=== PATIENT | female | born 1940 | race Caucasian/White ===

== ENCOUNTER → 2018-03-01 09:44 | Outpatient (CLI) | payer MEDICARE, SELFPAY ==
[2018-03-01 09:59] LABS: Add Manual Diff / Slide Review NO; Basophils Percent Auto 1.1 % (0-2); Hematocrit 35.6 % (36-46); Hemoglobin 11.8 g/dL (12.0-16.0); Lymphocytes Percent Auto 24.3 % (25-40); Mean Corpuscular HGB Conc 33.1 % (30-36); Mean Corpuscular Hemoglobin 25.5 PG (26-34); Mean Corpuscular Volume 76.9 fL (80-100); Monocytes Percent Auto 8.2 % (3-14); Neutrophils Absolute Auto 4300 /uL (3000-5900); Neutrophils Percent Auto 64.4 % (50-75); Platelet Count 198 X10^3/uL (150-400); Red Blood Cell Count 4.63 X10^6/uL (4.0-5.2); White Blood Cell Count 6.7 X10^3/uL (4.5-11.0)
[2018-03-01 10:35] LABS: Alanine Aminotransferase 24 IU/L (9-52); Albumin 4.2 g/dL (3.5-5.0); Albumin Globulin Ratio 1.4 (1.0-2.8); Alkaline Phosphatase 84 U/L (38-126); Aspartate Aminotransferase 23 IU/L (14-36); BUN Creatinine Ratio 22.5 (6-22); Bilirubin Total 0.5 mg/dL (0.2-1.3); Blood Urea Nitrogen 18 mg/dL (7-17); Calcium 9.2 mg/dL (8.4-10.2); Carbon Dioxide 26 mmol/L (22-32); Chloride 108 mmol/L (98-107); Estimated Glomerular Filt Rate > 60.0 mL/min (>60); Globulin 2.9 g/dL (1.7-4.1); Glucose 100 mg/dL (80-110); HDL Cholesterol 41 mg/dL (40-60); HEMOLYSIS < 15 (0-50); Potassium 4.5 mmol/L (3.4-5.1); Sodium 142 mmol/L (137-145); Total Protein 7.1 g/dL (6.3-8.2); Triglycerides 291 mg/dL (35-150)
[2018-03-01 10:43] LABS: Cholesterol 333 mg/dL (140-199); LDL Cholesterol Calculated 234 mg/dL (<100)
[2018-03-01 11:03] LABS: TSH w/ Reflex to FT4 1.51 uIU/mL (0.47-4.68)
== END ==
PROVIDERS: PCP Family Medicine; Visit Provider Family Medicine
DX: L65.9 Nonscarring hair loss, unspecified (principal); E78.5 Hyperlipidemia, unspecified
CPT/HCPCS: 80053; 80061; 84443; 85025

== ENCOUNTER 2018-12-10 11:18 | Day surgery (SDC) | payer OTHER, SELFPAY ==
[2018-12-10 11:50] VITALS: BP 139/77; PULSE 79; RESP 18; TEMP 36.6; O2SAT 99; BMI 30.2
[2018-12-10] MEDS: PROPARACAINE 0.5% OPHTH SOL 2 DROPS EYE-OP (12:15)
[2018-12-10] MEDS: CATARACT EYE COMPOUND (10 DROPS/SYRINGE) 3 DROPS EYE-OP (12:20)
--- NOTE | 2018-12-10 12:54 | PM.PREOP ---
Pre-operative Note Interval Note History & Physical reviewed/Exam performed by Physician: No Changes to H&P: No
--- NOTE | 2018-12-10 12:54 | PM.OP.1 ---
Operative Date/Time/Diagnoses Pre-op diagnosis: Nuclear Cataract Left eye Post-op diagnosis: same Procedure & Clinicians Surgeon: Guanako Bryant Anesthesia Type: MAC +/- and Sedation Operative Notes Procedure in detail: Patient brought to the operating suite. Tetracaine drops placed in the left eye. Patient was prepped and draped in sterile manner. Wire lid speculum was placed in the eye. Betadine drops were placed on the eye. This was irrigated. Lidocaine jelly was placed on the eye. A paracentesis port was created with a side-port blade. 0.1 mL 1% preservative free lidocaine was injected into the anterior chamber. The anterior chamber was deepened with viscoelastic. 2.6 mm keratome was used to create a temporal clear corneal incision. Cystotome and Utrata forceps were used to create continuous tear capsulorrhexis. Balanced salt solution was used to hydro dissect the nucleus. The phacoemulsification handpiece was inserted and the nucleus was removed using the stop and chop technique. The irrigation aspiration handpiece was inserted and the remaining cortex was removed. Anterior chamber was deepened with viscoelastic. An Herr ZCB00 intraocular lens with a power of 18.0 was injected into the capsular bag. Irrigation aspiration handpiece was inserted and the remaining viscoelastic was removed. Incision was hydrated with balanced salt solution and found to be leak free with pressure with Weck-Eliana sponges. 0.1 mL Vigamox injected anterior chamber. 0.3 mL Kenalog 10 mg was injected subconjunctivally. Lid speculum was removed. The patient left the operating room in excellent condition. Complications: none Condition: stable Disposition: same day surgery
[2018-12-10] MEDS: PHENYLEPHRINE/LIDOCAINE VIAL (OR) 0.2 ML EYE-OP (13:12)
[2018-12-10] MEDS: MOXIFLOXACIN OPHTH DROPS 3 ML BOTTLE 2 DROPS INJ (13:12)
[2018-12-10] MEDS: TRIAMCINOLONE 50 MG/5 ML VIAL INJ (13:12)
[2018-12-10] MEDS: LIDOCAINE JELLY 2% 5 ML 1 APPLIC TOP (13:14)
[2018-12-10] MEDS: BALANCED SALT IRRIG SOLN NO.2 500 ML, EPINEPHrine 1 MG IRR (13:15)
[2018-12-10] MEDS: TETRACAINE 0.5% OPHTH DROPS 4 ML 2 DROPS EYE-OP (13:15)
[2018-12-10] MEDS: CHONDROIDTIN/SOD HYALURONATE 1.05 ML SYRINGE INTRAOCULA (13:16)
[2018-12-10 13:25] VITALS: BP 141/66; PULSE 73; RESP 20; TEMP 36.2; O2SAT 100
== END 2018-12-10 13:42 | disposition home or self-care (01) ==
PROVIDERS: Family Provider Family Medicine; PCP Nurse Practitioner Family; Visit Provider Ophthalmology
DX: H25.12 Age-related nuclear cataract, left eye (principal)
CPT/HCPCS: J0171; J2250; J3301

== ENCOUNTER 2018-12-24 10:29 | Day surgery (SDC) | payer OTHER, SELFPAY ==
[2018-12-24] MEDS: PROPARACAINE 0.5% OPHTH SOL 2 DROPS EYE-OP (10:59)
[2018-12-24 11:01] VITALS: BMI 26.2
[2018-12-24] MEDS: CATARACT EYE COMPOUND (10 DROPS/SYRINGE) 3 DROPS EYE-OP (11:08)
[2018-12-24 11:09] VITALS: BP 153/83; PULSE 71; RESP 16; TEMP 36.2; O2SAT 100
--- NOTE | 2018-12-24 11:57 | PM.PREOP ---
Pre-operative Note Interval Note History & Physical reviewed/Exam performed by Physician: No Changes to H&P: No
--- NOTE | 2018-12-24 11:57 | PM.OP.1 ---
Operative Date/Time/Diagnoses Pre-op diagnosis: Nuclear cataract right eye Procedure & Clinicians Procedure: Cataract Surgery Same procedure as scheduled: Yes Surgeon: Guanako Bryant Anesthesia Type: MAC +/- and Sedation Operative Notes Procedure in detail: Patient brought to the operating suite. Tetracaine drops placed in the right eye. Patient was prepped and draped in sterile manner. Wire lid speculum was placed in the eye. Betadine drops were placed on the eye. This was irrigated. Lidocaine jelly was placed on the eye. A paracentesis port was created with a side-port blade. 0.1 mL 1% preservative free lidocaine was injected into the anterior chamber. The anterior chamber was deepened with viscoelastic. 2.6 mm keratome was used to create a temporal clear corneal incision. Cystotome and Utrata forceps were used to create continuous tear capsulorrhexis. Balanced salt solution was used to hydro dissect the nucleus. The phacoemulsification handpiece was inserted and the nucleus was removed using the stop and chop technique. The irrigation aspiration handpiece was inserted and the remaining cortex was removed. Anterior chamber was deepened with viscoelastic. An Herr ZCB00 intraocular lens with a power of 18.5 was injected into the capsular bag. Irrigation aspiration handpiece was inserted and the remaining viscoelastic was removed. Incision was hydrated with balanced salt solution and found to be leak free with pressure with Weck-Eliana sponges. 0.1 mL Vigamox injected anterior chamber. 0.3 mL Kenalog 10 mg was injected subconjunctivally. Lid speculum was removed. The patient left the operating room in excellent condition. Complications: none Condition: stable Disposition: same day surgery
--- NOTE | 2018-12-24 12:07 | SUR.OPER ---
Supine on eye stretcher, head on extension cradle secured with tape. Arms tucked at sides with blanket. Pillow under knees.
[2018-12-24] MEDS: MOXIFLOXACIN OPHTH DROPS 3 ML BOTTLE 2 DROPS INJ (12:10)
[2018-12-24] MEDS: LIDOCAINE JELLY 2% 5 ML 1 APPLIC TOP (12:10)
[2018-12-24] MEDS: PHENYLEPHRINE/LIDOCAINE VIAL (OR) 0.2 ML EYE-OP (12:10)
[2018-12-24] MEDS: CHONDROIDTIN/SOD HYALURONATE 1.05 ML SYRINGE INTRAOCULA (12:10)
[2018-12-24] MEDS: TETRACAINE 0.5% OPHTH DROPS 4 ML 2 DROPS EYE-OP (12:11)
[2018-12-24] MEDS: BALANCED SALT IRRIG SOLN NO.2 500 ML, EPINEPHrine 1 MG IRR (12:12)
[2018-12-24 12:29] VITALS: BP 162/68; PULSE 63; RESP 14; TEMP 36.2; O2SAT 100
--- NOTE | 2018-12-24 12:38 | SUR.PHASEII ---
Confirmed that patient has a Dr. order that she may take a taxi home w/ Autumn Kiran RN
== END 2018-12-24 12:42 | disposition home or self-care (01) ==
LOC: OR 10:31
PROVIDERS: PCP Nurse Practitioner Family; Visit Provider Ophthalmology
DX: H25.11 Age-related nuclear cataract, right eye (principal)
CPT/HCPCS: J0171

== ENCOUNTER 2019-07-28 04:49 | Inpatient (IN) | payer OTHER, SELFPAY ==
[2019-07-28] VITALS (10 sets, daily range): BP systolic 119–181; BP diastolic 53–84; PULSE 67–96; RESP 15–18; TEMP 36.3–36.9; O2SAT 94–99; BMI 24.1
--- NOTE | 2019-07-28 04:56 | ED_ITS ---
HPI - GI Bleed General Chief complaint: Abdominal Pain Stated complaint: throwing coffee grounds/blood clot Time Seen by Provider: 07/28/19 04:54 Source: patient and old records reviewed Mode of arrival: Ambulatory Limitations: no limitations History of Present Illness HPI Narrative: This is a 78-year-old female comes to the emergency department with complaint of abdominal pain kind of in the epigastric but also mid abdominal area. Patient states that she has is on off for a long period of time. She states she has known ulcers. She also describes what sounds like strictures in the esophagus and potentially some issues with bowel obstructions in the past. Patient states that she threw up multiple times since yesterday at 6:00 a.m. and that she did see some coffee-ground. She states she smokes little dizzy but no presyncope or lightheadedness. She denies any chest pain or shortness of breath. She states she has been having bowel movements she denies melena or bright red blood. She denies dysuria, urgency or frequency. She has not appreciated any swelling in her lower extremities. She states she takes medications for bipolar. She takes Pepcid daily for her stomach. She denies any aspirin or other blood thinners. Related Data Previous Rx's Medication Instructions Recorded sertraline 100 mg tablet 150 mg PO QDAY #135 tab 12/24/17 atorvastatin 40 mg tablet 40 mg PO BEDTIME #30 tab 07/01/18 hydroxyzine HCl 10 mg tablet 10 mg PO BEDTIME PRN #30 tab 07/01/18 Allergies Allergy/AdvReac Type Severity Reaction Status Date / Time Penicillins [PENICILLINS] Allergy Mild Rash Verified 12/24/18 10:57 Review of Systems Review of Systems ROS Unobtainable: All systems reviewed & are unremarkable except as noted in HPI and below Patient History Family History Brother No problems noted. Grandfather No problems noted. Grandmother No problems noted. Social History household members: family Smoking Status: Never smoker alcohol intake: never substance use type: does not use Smoking Status: Never smoker Exam Narrative Exam Narrative: GENERAL: Alert and oriented x three, well-nourished, well- appearing elderly female. HEENT: Head normocephalic, atraumatic, EOMI, pupils reactive, no conjunctival pallor, face symmetric, moist mucous membranes NECK: Supple, full range of motion CARDIOVASCULAR: Regular rate and rhythm without murmurs, rubs or gallops. RESPIRATORY: Breath sounds equal bilaterally, no wheezes rales or rhonchi. ABDOMEN: Soft, nontender. Normoactive bowel sounds all 4 quadrants. No guarding or rebound, rigidity, no mass : No CVA tenderness EXTREMITIES: Normal range of motion, no clubbing or edema. Neurovascularly intact NEUROLOGICAL: Cranial nerves II through XII grossly intact. Moving all extremities SKIN: Warm, dry, no petechiae, no rashes or lesions. Initial Vital Signs Initial Vital Signs: Vital Signs Temperature 98 F 07/28/19 05:00 Pulse Rate 96 H 07/28/19 05:00 Respiratory Rate 18 07/28/19 05:00 Blood Pressure 181/84 H 07/28/19 05:00 Pulse Oximetry 97 07/28/19 05:00 Course Orders Ordered: ED Orders 07/28/19 05:11 Complete Blood Count AUTO DIFF Stat Comprehensive Metabolic Panel Stat Lipase Stat Partial Thromboplastin Time Stat Prothrombin Time INR Stat 07/28/19 05:19 CT abdomen pelvis w con Stat 07/28/19 05:30 Type and Screen Stat Discontinued Medications Al Hydrox/Mg Hydrox/Simethicone 20 ml/ Lidocaine HCl 15 ml 0 ml PO NOW ONE Stop: 07/28/19 06:51 Last Admin: 07/28/19 07:30 Dose: 15 ml Documented by: CLOTILDE Ondansetron HCl (Zofran) 4 mg IV NOW ONE Stop: 07/28/19 05:19 Last Admin: 07/28/19 05:29 Dose: 4 mg Documented by: PETE Pantoprazole Sodium (Protonix) 80 mg IV NOW ONE Stop: 07/28/19 05:19 Last Admin: 07/28/19 05:28 Dose: 80 mg Documented by: PETE Vital Signs Vital signs: Vital Signs - 8 hr 07/28/19 05:00 07/28/19 06:12 Temperature 98 F Pulse Rate 96 H 67 Respiratory Rate 18 18 Blood Pressure 181/84 H Blood Pressure [Right Arm] 180/65 H Pulse Oximetry 97 94 MDM - GI Bleed Lab Data Attestation: I reviewed the patient's lab results. Result diagrams: 07/28/19 05:11 07/28/19 05:11 Labs: Lab Results 07/28/19 07/28/19 07/28/19 Range/Units 05:11 05:11 05:11 WBC 8.3 (4.5-11.0) X10^3/uL RBC 3.88 L (4.0-5.2) X10^6/uL Hgb 7.9 L (12.0-16.0) g/dL Hct 24.9 L (36-46) % MCV 64.2 L (80-100) fL MCH 20.3 L (26-34) PG MCHC 31.7 (30-36) % RDW 17.8 H (11.6-14.8) % Plt Count 230 (150-400) X10^3/uL Neut % (Auto) 72.3 (50-75) % Lymph % (Auto) 15.9 L (25-40) % [place] % (Auto) 9.8 (3-14) % Eos % (Auto) 0.9 L (2-4) % Baso % (Auto) 1.1 (0-2) % Neut # (Auto) 6000 (0293-1972) /uL Lymph # (Auto) 1300 (3124-7087) /uL [place] # (Auto) 800 (0-900) /uL Eos # (Auto) 100 (0-450) /uL Baso # (Auto) 100 (0-100) /uL RBC Morphology See below Hypochromasia 1+ H Anisocytosis 2+ H Microcytosis 2+ H Tear Drop Cells 1+ H Schistocytes 1+ H PT 12.0 (10.1-12.7) SECONDS INR 1.0 (0.9-1.3) APTT 30 (26.4-36.2) SECONDS Sodium 140 (137-145) mmol/L Potassium 3.6 (3.4-5.1) mmol/L Chloride 101 (98-107) mmol/L Carbon Dioxide 29 (22-32) mmol/L BUN 28 H (7-17) mg/dL Creatinine 0.90 (0.52-1.04) mg/dL Estimated GFR > 60.0 (>60) mL/min BUN/Creatinine Ratio 31.1 H (6-22) Glucose 116 H (80-110) mg/dL Calcium 9.8 (8.4-10.2) mg/dL Total Bilirubin 0.4 (0.2-1.3) mg/dL AST 20 (14-36) IU/L ALT 14 (<35) IU/L Alkaline Phosphatase 84 (38-126) U/L Total Protein 6.9 (6.3-8.2) g/dL Albumin 4.2 (3.5-5.0) g/dL Globulin 2.7 (1.7-4.1) g/dL Albumin/Globulin Ratio 1.6 (1.0-2.8) Lipase 79 (23-300) U/L Blood Type Antibody Screen 07/28/19 Range/Units 05:30 WBC (4.5-11.0) X10^3/uL RBC (4.0-5.2) X10^6/uL Hgb (12.0-16.0) g/dL Hct (36-46) % MCV (80-100) fL MCH (26-34) PG MCHC (30-36) % RDW (11.6-14.8) % Plt Count (150-400) X10^3/uL Neut % (Auto) (50-75) % Lymph % (Auto) (25-40) % [place] % (Auto) (3-14) % Eos % (Auto) (2-4) % Baso % (Auto) (0-2) % Neut # (Auto) (6500-2136) /uL Lymph # (Auto) (2020-7479) /uL [place] # (Auto) (0-900) /uL Eos # (Auto) (0-450) /uL Baso # (Auto) (0-100) /uL RBC Morphology Hypochromasia Anisocytosis Microcytosis Tear Drop Cells Schistocytes PT (10.1-12.7) SECONDS INR (0.9-1.3) APTT (26.4-36.2) SECONDS Sodium (137-145) mmol/L Potassium (3.4-5.1) mmol/L Chloride (98-107) mmol/L Carbon Dioxide (22-32) mmol/L BUN (7-17) mg/dL Creatinine (0.52-1.04) mg/dL Estimated GFR (>60) mL/min BUN/Creatinine Ratio (6-22) Glucose (80-110) mg/dL Calcium (8.4-10.2) mg/dL Total Bilirubin (0.2-1.3) mg/dL AST (14-36) IU/L ALT (<35) IU/L Alkaline Phosphatase (38-126) U/L Total Protein (6.3-8.2) g/dL Albumin (3.5-5.0) g/dL Globulin (1.7-4.1) g/dL Albumin/Globulin Ratio (1.0-2.8) Lipase (23-300) U/L Blood Type O Positive Antibody Screen Negative Imaging Data CT scan - abdomen: Radiologist's impression: Large hiatal hernia with the stomach of the fundus in the left lower chest. Mild stranding adjacent to the subdiaphragmatic esophagus. Moderate fluid in the stomach. Dependent changes in the lung bases, left greater than right. 2 mm right perihilar a subpleural nodule. Impression moderate distention of the stomach fundus of the stomach the left lower chest. Inflammation surrounding the sub diaphragmatic distal esophagus. Gastric volvulus is a consideration. MDM Narrative Medical decision making narrative: Patient hemoglobin is 7.9 prior is 11.8 from 03/01/18. Patient has not had tachycardia or hypotension in the department. She has history of peptic ulcer disease and has had prior EGD's. Patient had complaint of coffee ground emesis on earlier this evening, no additional in d epartment. CT abd/pelvis shows moderate distention of the stomach with fundus of the stomach in the left lower chest. Inflammation surrounding subdiaphragmatic distal esophagus. Gastric volvulus is a consideration. Spoke with Dr. Isidro, he asked that patient be admitted to Medicine. based on the fact that patient is not severely painful, she has been having bowel movements and passing gas regularly both his and my suspicion is that this is not a volvulus. Patient does have a history of peptic ulcer disease and with her or change in hemoglobin from last year would be prudent to observe. Patient was given Protonix 80 mg. Patient signed out to Dr. Gonzales while awaiting callback from medicine. Discharge Plan Departure Clinical Impression: GI bleed Prescriptions: No Action sertraline [Zoloft] 100 mg tablet 150 mg PO QDAY Qty: 135 RF: 3 atorvastatin 40 mg tablet 40 mg PO BEDTIME Qty: 30 RF: 5 hydroxyzine HCl 10 mg tablet 10 mg PO BEDTIME PRN (Reason: insomnia) Qty: 30 RF: 0 Referrals: Freida Phillips ARNP [Primary Care Provider] - ED Sign-out Sign Out Provider Sign Out Attestation: Patient Sign Out occurred on 07/28/19 at 0735 . Patient's care was discussed, and care was transferred from Ciara Adams DO to Dr. Gonzales.
--- NOTE | 2019-07-28 05:19 | DI.CT.S_ITS ---
PROCEDURE: CT ABDOMEN PELVIS W CON INDICATIONS: vomiting, hx peptic ulcer, epigastric/mid abd pain TECHNIQUE: After the administration of intravenous contrast, 5 mm thick sections acquired from the diaphragm to the symphysis. 5 mm coronal and sagittal reformats were acquired. For radiation dose reduction, the following was used: automated exposure control, adjustment of mA and/or kV according to patient size. COMPARISON: [facility], CT, ABDOMEN WITH CONTRAST, 08/23/2012, 8:43. FINDINGS: Image quality: Excellent. ABDOMEN: Lung bases: Scattered scarring/atelectasis. No acute consolidation. 2-3 mm nodule present within the subpleural right lung base on image 4 series 3, technically non-specific Solid organs: Liver is normal in size and enhancement. Gallbladder surgically absent. Biliary system is non dilated. Pancreas enhances normally. Spleen is normal in size and enhancement. No adrenal nodules. No hydronephrosis. Simple appearing exophytic left renal cyst. Additional cortical cysts in the left kidney with simple appearance. No perinephric stranding. Peritoneum and bowel: There is large hiatal hernia as before, with air fluid level in the gastric lumen. Inflammatory stranding in the distal esophagus. As discussed in the preliminary report, technically cannot exclude gastric volvulus, however nonspecific appearance and this requires clinical correlation. No free air or free fluid. No evidence of bowel obstruction or specific transition point. Diffuse moderate stool. Colonic diverticulosis. Rectum grossly unremarkable. Nodes and vessels: No retroperitoneal or mesenteric adenopathy by size criteria. Aorta and inferior vena cava are normal in size. Miscellaneous: No ventral hernias. PELVIS: Genitourinary: Bladder wall thickness is normal. Miscellaneous: No inguinal hernias or adenopathy. Bones: No suspicious bony lesions. No vertebral body compression fractures. Diffuse osteopenia. Facet arthropathy and multilevel spondylosis. Slight retrolisthesis of L1 on L2 and L2 on L3. Large Schmorl's node involving the L3 superior endplate, as before IMPRESSION: Large hiatal hernia as before, with distended appearance of the stomach, and mild inflammatory changes surrounding the distal esophagus. Gastric volvulus is a consideration however requires close clinical correlation. Incidental diverticulosis. 2-3 mm right subpleural nodule, technically nonspecific. This could be followed up with a one year interval chest CT as clinically warranted Dictated by: Cole Gan M.D. on 07/28/2019 at 8:25 Approved by: Cole Gan M.D. on 07/28/2019 at 8:37
[2019-07-28] MEDS: PANTOPRAZOLE 40 MG VIAL 80 MG IV (05:28)
[2019-07-28 05:29] LABS: Basophils Absolute Auto 100 /uL (0-100); Basophils Percent Auto 1.1 % (0-2); Eosinophils Absolute Auto 100 /uL (0-450); Eosinophils Percent Auto 0.9 % (2-4); Hematocrit 24.9 % (36-46); Hemoglobin 7.9 g/dL (12.0-16.0); Lymphocytes Absolute Auto 1300 /uL (1100-4500); Lymphocytes Percent Auto 15.9 % (25-40); Mean Corpuscular HGB Conc 31.7 % (30-36); Mean Corpuscular Hemoglobin 20.3 PG (26-34); Mean Corpuscular Volume 64.2 fL (80-100); Monocytes Absolute Auto 800 /uL (0-900); Monocytes Percent Auto 9.8 % (3-14); Neutrophils Absolute Auto 6000 /uL (1500-7000); Neutrophils Percent Auto 72.3 % (50-75); Platelet Count 230 X10^3/uL (150-400); Red Blood Cell Count 3.88 X10^6/uL (4.0-5.2); Red Cell Distribution Width 17.8 % (11.6-14.8); White Blood Cell Count 8.3 X10^3/uL (4.5-11.0)
[2019-07-28] MEDS: ONDANSETRON 4 MG/2 ML INJ IV (05:29)
[2019-07-28 05:31] LABS: Add Manual Diff / Slide Review SLIDE REVIEW
[2019-07-28 05:44] LABS: Alanine Aminotransferase 14 IU/L (<35); Albumin 4.2 g/dL (3.5-5.0); Albumin Globulin Ratio 1.6 (1.0-2.8); Alkaline Phosphatase 84 U/L (38-126); Aspartate Aminotransferase 20 IU/L (14-36); BUN Creatinine Ratio 31.1 (6-22); Bilirubin Total 0.4 mg/dL (0.2-1.3); Blood Urea Nitrogen 28 mg/dL (7-17); Calcium 9.8 mg/dL (8.4-10.2); Carbon Dioxide 29 mmol/L (22-32); Chloride 101 mmol/L (98-107); Estimated Glomerular Filt Rate > 60.0 mL/min (>60); Globulin 2.7 g/dL (1.7-4.1); Glucose 116 mg/dL (80-110); HEMOLYSIS < 15 (0-50); Lipase 79 U/L (23-300); Potassium 3.6 mmol/L (3.4-5.1); Sodium 140 mmol/L (137-145); Total Protein 6.9 g/dL (6.3-8.2)
[2019-07-28 05:49] LABS: PTT Partial Thromboplastin Tim 30 SECONDS (26.4-36.2)
[2019-07-28 06:39] LABS: Anisocytosis 2+; Hypochromasia 1+; Microcytosis 2+; Schistocytes 1+; Tear Drop Cells 1+
[2019-07-28] MEDS: MAG HYDROX/ALUMINUM/SIMETH SUS 20 ML, LIDOCAINE VISCOUS 2% 15 ML PO (07:30)
--- NOTE | 2019-07-28 09:58 | PM.HP.1 ---
History of Present Illness History of Present Illness Date Patient Seen: 07/28/19 Time Patient Seen: 10:00 Chief complaint: throwing coffee grounds/blood clot Narrative: Joann Garrison is a 78-year-old female with past medical history of peptic ulcer disease, esophageal strictures (followed at [facility]), hyperlipidemia, bipolar disorder who presented to the emergency room with coffee-ground emesis starting yesterday evening. Patient states that she had a slight increase in her normal emesis pattern recently. She says that after some meals she usually vomits from her strictures, however starting yesterday she vomited about 12 times, and then the emesis became very dark with coffee-ground material. She tried taking Pepto-Bismol when she started vomiting but this did not help. With her emesis she developed moderate, sharp and burning, epigastric pain that radiated into her throat. This improved with medications given in the emergency room. There was no radiation to her back. For the past couple of days she has had worsening dyspnea on exertion, as well as generalized malaise. She states she thinks her stools may have been dark as well. She denies any recent fevers or chills, chest pain, shortness of breath at rest, changes in her usual cough, sputum production, changes in her usual headaches, vision changes, skin rash, or lower extremity swelling. In the emergency room, patient was mildly hypertensive, heart rate of 96 but afebrile and vitals were otherwise unremarkable. Her initial labs showed a hemoglobin of 7.9, down from 11 last year, unremarkable CMP. CT abdomen pelvis showed a large hiatal hernia, distended stomach, with mild inflammatory changes around the distal esophagus, and the read indicates that volvulus is a consideration. The emergency room contacted general surgery who did not believe her symptoms were consistent with a volvulus, however they did recommend observation, formal recommendations are pending. Patient was admitted to Medicine under observation status for a possible upper GI bleed. Patient History Family & Social History Family History Brother No problems noted. Grandfather No problems noted. Grandmother No problems noted. Social History: household members family Prior Living Arrangements House Safety & Behavioral: Feels Safe in Current Yes Environment Been Physically Hurt or No Threatened By a Person Suicidal Ideation Description None Suicide Plan Description No Plan Tobacco & Substance use: Smoking Status Never smoker alcohol intake never alcohol intake frequency holiday/special occasion Substance Use Type does not use Meds Home Medications and Allergies Home Medications Medication Instructions Recorded Confirmed Type sertraline 100 mg tablet 150 mg PO QDAY #135 tab 12/24/17 07/28/19 Rx atorvastatin 40 mg tablet 40 mg PO BEDTIME #30 tab 07/01/18 07/28/19 Rx bupropion HCl [Wellbutrin XL] 150 mg PO QAM 07/28/19 07/28/19 History Allergies Allergy/AdvReac Type Severity Reaction Status Date / Time Penicillins [PENICILLINS] Allergy Mild Rash Verified 12/24/18 10:57 Review of Systems Review of Systems Narrative: All other systems reviewed with the patient and are negative unless otherwise stated. Exam Vital Signs (past 8 hours): - 07/28/19 05:00 07/28/19 06:12 07/28/19 07:00 Temperature 98 F Pulse Rate 96 H 67 79 Respiratory Rate 18 18 15 Blood Pressure 181/84 H Blood Pressure [Right Arm] 180/65 H 151/64 H Pulse Oximetry 97 94 97 07/28/19 07:15 07/28/19 07:49 07/28/19 08:40 Temperature 98.5 F Pulse Rate 80 80 78 Respiratory Rate 15 17 16 Blood Pressure 134/63 Blood Pressure [Right Arm] 138/65 144/61 H Pulse Oximetry 99 98 97 Oxygen Delivery Method Room Air Oxygen Flow Rate 0 Narrative Exam Narrative: GENERAL APPEARANCE: Well developed, well nourished, in no acute distress. Very slightly pale. SKIN: Inspection of the skin reveals no rashes, ulcerations or petechiae. Slight pallor HEENT: The sclerae were anicteric and conjunctivae were pink and moist. Extraocular movements were intact and pupils were equal, round with normal accommodation. External inspection of the ears and nose showed no scars, lesions, or masses. Lips, teeth, and gums showed normal mucosa. The oral mucosa, hard and soft palate, tongue and posterior pharynx were unremarkable. NECK: Supple and symmetric. There was no thyroid enlargement, and no tenderness, or masses were felt. CHEST: Normal AP diameter and normal contour without any kyphoscoliosis. LUNGS: Auscultation of the lungs revealed no wheezes, rhonchi, or rales. CARDIOVASCULAR: There was a regular rate and rhythm without any murmurs, gallops, rubs. Peripheral pulses were 2+ and symmetric. ABDOMEN: Soft, mildly tender in the left upper quadrant and epigastrium without rebound. Normal bowel sounds. No ascites was noted. MUSCULOSKELETAL: There was no tenderness or effusions noted. Muscle strength and tone were normal. EXTREMITIES: No cyanosis, clubbing or edema. NEUROLOGIC: Alert and oriented x 3. Normal affect. Strength is +5/5 in the Upper Extremities and Lower Extremities Bilaterally. Sensation to touch was normal. Objective Labs Result Diagrams: 07/28/19 05:11 07/28/19 05:11 Labs: Laboratory Results - last 24 hr 07/28/19 07/28/19 07/28/19 05:11 05:11 05:11 WBC 8.3 RBC 3.88 L Hgb 7.9 L Hct 24.9 L MCV 64.2 L MCH 20.3 L MCHC 31.7 RDW 17.8 H Plt Count 230 Neut % (Auto) 72.3 Lymph % (Auto) 15.9 L [place] % (Auto) 9.8 Eos % (Auto) 0.9 L Baso % (Auto) 1.1 Neut # (Auto) 6000 Lymph # (Auto) 1300 [place] # (Auto) 800 Eos # (Auto) 100 Baso # (Auto) 100 RBC Morphology See below Hypochromasia 1+ H Anisocytosis 2+ H Microcytosis 2+ H Tear Drop Cells 1+ H Schistocytes 1+ H PT 12.0 INR 1.0 APTT 30 Sodium 140 Potassium 3.6 Chloride 101 Carbon Dioxide 29 BUN 28 H Creatinine 0.90 Estimated GFR > 60.0 BUN/Creatinine Ratio 31.1 H Glucose 116 H Calcium 9.8 Total Bilirubin 0.4 AST 20 ALT 14 Alkaline Phosphatase 84 Total Protein 6.9 Albumin 4.2 Globulin 2.7 Albumin/Globulin Ratio 1.6 Lipase 79 Blood Type Antibody Screen 07/28/19 05:30 WBC RBC Hgb Hct MCV MCH MCHC RDW Plt Count Neut % (Auto) Lymph % (Auto) [place] % (Auto) Eos % (Auto) Baso % (Auto) Neut # (Auto) Lymph # (Auto) [place] # (Auto) Eos # (Auto) Baso # (Auto) RBC Morphology Hypochromasia Anisocytosis Microcytosis Tear Drop Cells Schistocytes PT INR APTT Sodium Potassium Chloride Carbon Dioxide BUN Creatinine Estimated GFR BUN/Creatinine Ratio Glucose Calcium Total Bilirubin AST ALT Alkaline Phosphatase Total Protein Albumin Globulin Albumin/Globulin Ratio Lipase Blood Type O Positive Antibody Screen Negative Assessment & Plan Assessment & Plan narrative: Joann Garrison is a 78-year-old female with past medical history of peptic ulcer disease, esophageal strictures (followed at [facility]), hyperlipidemia, bipolar disorder who presented to the emergency room with coffee-ground emesis starting yesterday evening. She is admitted to Medicine under observation status for possible upper GI bleeding. 1. Upper GI bleed, present on admission -unclear acuity at this time. Patient has had multiple episodes of emesis recently which may be indicative of a possible upper GI bleed initiating her symptoms. She could also have a Lauren-Dumont tear from her frequent emesis. This may have been going on for a couple of days given reports of dark stools recently. Her hemoglobin is lower than previous although her last value was a year ago, but she is slightly symptomatic with increased dyspnea on exertion and fatigue. - general surgery recommendations pending re: timing of possible endoscopy. - continue to follow h/h every 6 hours - NPO/IVF pending surgery recommendations - given 80 mg protonix in ED, continue 40 mg protonix IV BID 2. Acute blood loss anemia -secondary to likely above upper GI bleed. Her MCV is 64 indicating this may be more chronic in nature as previously her MCVs were in the 70s to 80s. She may have an underlying thallessemia as well given her MCV. -iron panel with next CBC -management as noted above 3. Hyperlipidemia, stable, chronic -continue home atorvastatin when able to take p.o. intake 4. Bipolar disorder, chronic stable -resume home Wellbutrin and sertraline when able to tolerate p.o. intake. Code: Patient states she is DNR DNI, surrogate decision maker is her daughter DVT: SCDs Dispo: Patient admitted under observation status as her stay is not likely to exceed 2 midnights. Quality VTE Deep Vein Thrombosis/Pulmonary Embolism Present on Admission: No
[2019-07-28 11:38] LABS: HEMOLYSIS < 15 (0-50); Iron 27 ug/dL (37-170)
[2019-07-28] MEDS: LACTATED RINGERS 1,000 ML 100 ML IV (11:38)
[2019-07-28 11:49] LABS: Percent Iron Saturation 6 % (15-50); Total Iron Binding Capacity 425 ug/dL (265-497); Transferrin 350 mg/dL (206-381)
--- NOTE | 2019-07-28 18:55 | PM.CN ---
History of Present Illness Consult details Date Patient Seen: 07/28/19 Time Patient Seen: 18:55 Chief complaint: throwing coffee grounds/blood clot Reason for consult: Upper GI bleed Requesting provider: Ciara Adams Narrative: The patient is a woman who has persistent intermittent nausea and vomiting after eating food. This is almost a daily occurrence but she has not lost weight. She is known to have a large hiatal hernia and she has had ulcers in the past. No gastric procedures. She has had cholecystectomy and a hysterectomy for benign disease. She had multiple episodes of emesis yesterday and after that began she developed coffee-ground emesis. She has had no emesis and she came into the hospital. She has had a noted drop in her hematocrit since her last labs done at the end of last year. [facility] Medical History Allergic rhinitis (Chronic Unknown) Anxiety (Chronic 05/03/17) GERD (gastroesophageal reflux disease) (Chronic Unknown) Hypertension (Chronic Unknown) IBS (irritable bowel syndrome) (Chronic Unknown) Surgical History (Updated 07/28/19 @ 18:57 by Lamin Isidro MD) History of esophagogastroduodenoscopy (EGD) (10/23/14) Hx of cholecystectomy (Resolved 1971) Hx of hysterectomy (Resolved Unknown) Family History Brother No problems noted. Grandfather No problems noted. Grandmother No problems noted. Social History household members: family Smoking Status: Never smoker alcohol intake: never substance use type: does not use Meds Home Medications and Allergies Home Medications Medication Instructions Recorded Confirmed Type sertraline 100 mg tablet 150 mg PO QDAY #135 tab 12/24/17 07/28/19 Rx atorvastatin 40 mg tablet 40 mg PO BEDTIME #30 tab 07/01/18 07/28/19 Rx bupropion HCl [Wellbutrin XL] 150 mg PO QAM 07/28/19 07/28/19 History Allergies Allergy/AdvReac Type Severity Reaction Status Date / Time Penicillins [PENICILLINS] Allergy Mild Rash Verified 12/24/18 10:57 Review of Systems Review of Systems Narrative: No chest pain or breathing problems at this time. No bloody bowel movements. No seizures or blackouts. No double vision pain arise earaches or throat. Exam Vital Signs (past 8 hours): - 07/28/19 11:25 07/28/19 15:17 Temperature 98.5 F 97.5 F L Pulse Rate 71 75 Respiratory Rate 16 18 Blood Pressure 119/66 138/64 Pulse Oximetry 98 95 Oxygen Delivery Method Room Air Oxygen Flow Rate 0 Narrative Exam Narrative: Operative thin woman in no apparent distress. Her eyes are nonicteric. Neck is supple no nodes in the neck supraclavicular areas lungs are clear to auscultation without rales or rhonchi in equal percussion. Heart regular rate and rhythm without murmur gallop. No bruit in the neck her abdomen is doughy soft nontender there are no masses vertical midline incisions noted from firm bili cuts down from her hysterectomy. No hernias appreciated. Objective Imaging CT scan - abdomen: My impression: But a 3rd of her stomach appears to be above her diaphragm in a hiatal hernia. This does not appear to be a paraesophageal hernia. Labs Result Diagrams: 07/28/19 05:11 07/28/19 05:11 Labs: Laboratory Results - last 24 hr 07/28/19 07/28/19 07/28/19 05:11 05:11 05:11 WBC 8.3 RBC 3.88 L Hgb 7.9 L Hct 24.9 L MCV 64.2 L MCH 20.3 L MCHC 31.7 RDW 17.8 H Plt Count 230 Neut % (Auto) 72.3 Lymph % (Auto) 15.9 L [place] % (Auto) 9.8 Eos % (Auto) 0.9 L Baso % (Auto) 1.1 Neut # (Auto) 6000 Lymph # (Auto) 1300 [place] # (Auto) 800 Eos # (Auto) 100 Baso # (Auto) 100 RBC Morphology See below Hypochromasia 1+ H Anisocytosis 2+ H Microcytosis 2+ H Tear Drop Cells 1+ H Schistocytes 1+ H PT 12.0 INR 1.0 APTT 30 Sodium 140 Potassium 3.6 Chloride 101 Carbon Dioxide 29 BUN 28 H Creatinine 0.90 Estimated GFR > 60.0 BUN/Creatinine Ratio 31.1 H Glucose 116 H Calcium 9.8 Iron TIBC % Saturation Transferrin Total Bilirubin 0.4 AST 20 ALT 14 Alkaline Phosphatase 84 Total Protein 6.9 Albumin 4.2 Globulin 2.7 Albumin/Globulin Ratio 1.6 Lipase 79 Blood Type Antibody Screen 07/28/19 07/28/19 05:30 11:10 WBC RBC Hgb Hct MCV MCH MCHC RDW Plt Count Neut % (Auto) Lymph % (Auto) [place] % (Auto) Eos % (Auto) Baso % (Auto) Neut # (Auto) Lymph # (Auto) [place] # (Auto) Eos # (Auto) Baso # (Auto) RBC Morphology Hypochromasia Anisocytosis Microcytosis Tear Drop Cells Schistocytes PT INR APTT Sodium Potassium Chloride Carbon Dioxide BUN Creatinine Estimated GFR BUN/Creatinine Ratio Glucose Calcium Iron 27 L TIBC 425 % Saturation 6 L Transferrin 350 Total Bilirubin AST ALT Alkaline Phosphatase Total Protein Albumin Globulin Albumin/Globulin Ratio Lipase Blood Type O Positive Antibody Screen Negative Assessment & Plan Assessment & Plan narrative: Patient's nausea and vomiting most likely due to her hiatal hernia. Large amount of her stomach resides in her chest. She probably gets full in the upper part of her stomach and it will release immediately and so she vomits. Bleeding may be due to irritation from emesis or from an ulcer. In any event she would probably benefit from an EGD. She may also benefit actually from repair of her hernia and pexing her stomach in her abdomen. It would be useful to do additional workup including a barium study to see how well her esophagus works before proceeding with that. I do not believe she is suffering from volvulus at this time.. EGD in the morning.
[2019-07-28 19:09] LABS: Add Manual Diff / Slide Review NO; Basophils Absolute Auto 100 /uL (0-100); Basophils Percent Auto 0.8 % (0-2); Eosinophils Absolute Auto 100 /uL (0-450); Eosinophils Percent Auto 1.9 % (2-4); Hematocrit 22.6 % (36-46); Hemoglobin 7.2 g/dL (12.0-16.0); Lymphocytes Absolute Auto 1700 /uL (1100-4500); Lymphocytes Percent Auto 25.3 % (25-40); Mean Corpuscular HGB Conc 31.9 % (30-36); Mean Corpuscular Hemoglobin 20.5 PG (26-34); Mean Corpuscular Volume 64.2 fL (80-100); Monocytes Absolute Auto 700 /uL (0-900); Monocytes Percent Auto 10.1 % (3-14); Neutrophils Absolute Auto 4200 /uL (1500-7000); Neutrophils Percent Auto 61.9 % (50-75); Platelet Count 218 X10^3/uL (150-400); Red Blood Cell Count 3.52 X10^6/uL (4.0-5.2); Red Cell Distribution Width 18.4 % (11.6-14.8); White Blood Cell Count 6.8 X10^3/uL (4.5-11.0)
[2019-07-28 19:30] LABS: Hypochromasia 1+; Microcytosis 2+
[2019-07-28] MEDS: PANTOPRAZOLE 40 MG VIAL IV (21:35)
--- NOTE | 2019-07-28 22:17 | PC.NURSE ---
Evening notes: Joann is Ox3, VS are stable. H&H redrawn with result of 03/10. Has been up to BR x 3 having formed black stools, guaiac + and smells like iron. Dr Isidro in room to see patient, new order written for clear liquids tonight, then NPO at midnight with plan to do endoscopy tomorrow. Patient is pleasant, cooperative. Gave self spit bath while in bathroom, denies need for further assistance. IVF infusing as ordered to LAC, protonix administered. She is independent in room with steady gait, calling nurse appropriately when needs help. Denies dizziness or recent falls at home.
[2019-07-29] VITALS (17 sets, daily range): BP systolic 94–144; BP diastolic 47–70; PULSE 67–81; RESP 12–18; TEMP 36.3–37.3; O2SAT 93–98; BMI 24.1
--- NOTE | 2019-07-29 00:10 | PC.NURSE ---
Addendum entered by Jannette Lin R.N. 07/29/19 06:35: Slept most of shift. Did have 1 liquid with partial formed black stool at start of shift and none since. Refused to have SCD's put back on after being up to bathroom earlier. H&H critical this morning and results called to Malik LAW, who stated she would put in orders for blood transfusion. Original Note: Patient is alert and oriented. Breath sounds CTA with RA sat of 97%. HRR. Denies nausea. At shift change complained of 5/10 stomach pain but denies pain/tenderness at this time. Has been having black stools. Denies dysuria, frequency or urgency with voiding. Able to turn self in bed and up to bathroom with SBA. SCD's applied at shift change and patient instructed to call for staff assist when needing to get out of bed in order to prevent falls; verbalizes understanding. Fall risk score is low. NPO for endoscopy in the morning.
[2019-07-29 05:53] LABS: Basophils Absolute Auto 100 /uL (0-100); Eosinophils Absolute Auto 100 /uL (0-450); Lymphocytes Absolute Auto 1400 /uL (1100-4500); Lymphocytes Percent Auto 24.8 % (25-40); Mean Corpuscular HGB Conc 31.3 % (30-36); Mean Corpuscular Hemoglobin 20.3 PG (26-34); Mean Corpuscular Volume 64.9 fL (80-100); Monocytes Absolute Auto 600 /uL (0-900); Monocytes Percent Auto 10.2 % (3-14); Neutrophils Absolute Auto 3500 /uL (1500-7000); Platelet Count 184 X10^3/uL (150-400); Red Blood Cell Count 3.22 X10^6/uL (4.0-5.2); Red Cell Distribution Width 18.2 % (11.6-14.8); White Blood Cell Count 5.7 X10^3/uL (4.5-11.0)
[2019-07-29 06:08] LABS: Alanine Aminotransferase 11 IU/L (<35); Albumin 3.2 g/dL (3.5-5.0); Albumin Globulin Ratio 1.3 (1.0-2.8); Alkaline Phosphatase 65 U/L (38-126); Aspartate Aminotransferase 17 IU/L (14-36); BUN Creatinine Ratio 22.5 (6-22); Bilirubin Total 0.4 mg/dL (0.2-1.3); Bilirubin Unconjugated 0.3 mg/dL (0.0-1.1); Blood Urea Nitrogen 18 mg/dL (7-17); Calcium 8.5 mg/dL (8.4-10.2); Carbon Dioxide 27 mmol/L (22-32); Chloride 107 mmol/L (98-107); Estimated Glomerular Filt Rate > 60.0 mL/min (>60); Globulin 2.4 g/dL (1.7-4.1); Glucose 92 mg/dL (80-110); HEMOLYSIS < 15 (0-50); Potassium 3.8 mmol/L (3.4-5.1); Sodium 138 mmol/L (137-145); Total Protein 5.6 g/dL (6.3-8.2)
[2019-07-29 06:25] LABS: Hemoglobin 6.5 g/dL (12.0-16.0)
[2019-07-29 06:26] LABS: Add Manual Diff / Slide Review SLIDE REVIEW; Hematocrit 20.9 % (36-46)
[2019-07-29] MEDS: LACTATED RINGERS 1,000 ML 100 ML IV (06:33)
[2019-07-29 07:50] LABS: Anisocytosis 2+; Hypochromasia 1+; Microcytosis 1+
[2019-07-29 07:51] LABS: Tear Drop Cells 1+
[2019-07-29] MEDS: PANTOPRAZOLE 40 MG VIAL IV ×2 (08:37→21:50)
[2019-07-29] MEDS: INFLUENZA HD VACCINE 0.5 ML SYRINGE IM (08:40)
--- NOTE | 2019-07-29 09:53 | P.PN_ITS ---
Subjective Subjective Date Patient Seen: 07/29/19 Time Patient Seen: 09:00 Interval history: Joann Garrison is a 78-year-old female with past medical history of peptic ulcer disease, esophageal strictures (followed at [facility]), hyperlipidemia, bipolar disorder who presented to the emergency room with coffee-ground emesis, she is seen today for follow-up of an upper GI bleed. She states she feels better, denying any nausea, vomiting or abdominal pain today. She did have some liquids yesterday and noted some normal colored liquidy stool yesterday after this. Overnight her hemoglobin dropped to 6.5, she is currently pending a 1 unit PRBC transfusion. She denies any worsened fatigue today, chest pains, or worsened shortness of breath but does note she has not ambulated much other than to the bathroom. She is pending an EGD today with General surgery. Exam Vital Signs (past 8 hours): - 07/29/19 03:38 07/29/19 07:20 Temperature 97.7 F 98.8 F Pulse Rate 80 75 Respiratory Rate 18 16 Blood Pressure 112/51 L 114/48 L Pulse Oximetry 95 93 Oxygen Delivery Method Room Air Oxygen Flow Rate 0 Narrative Exam Narrative: GENERAL APPEARANCE: Well developed, well nourished, in no acute distress. Very slightly pale. SKIN: Inspection of the skin reveals no rashes, ulcerations or petechiae. Slight pallor HEENT: The sclerae were anicteric and conjunctivae were pink and moist. Extraocular movements were intact and pupils were equal, round with normal accommodation. External inspection of the ears and nose showed no scars, lesions, or masses. Lips, teeth, and gums showed normal mucosa. The oral mucosa, hard and soft palate, tongue and posterior pharynx were unremarkable. NECK: Supple and symmetric. There was no thyroid enlargement, and no tenderness, or masses were felt. CHEST: Normal AP diameter and normal contour without any kyphoscoliosis. LUNGS: Auscultation of the lungs revealed no wheezes, rhonchi, or rales. CARDIOVASCULAR: There was a regular rate and rhythm without any murmurs, gallops, rubs. Peripheral pulses were 2+ and symmetric. ABDOMEN: Soft, nontender. Normal bowel sounds. No ascites was noted. MUSCULOSKELETAL: There was no tenderness or effusions noted. Muscle strength and tone were normal. EXTREMITIES: No cyanosis, clubbing or edema. NEUROLOGIC: Alert and oriented x 3. Normal affect. Strength is +5/5 in the Upper Extremities and Lower Extremities Bilaterally. Sensation to touch was normal. Objective Labs Result Diagrams: 07/29/19 05:30 07/29/19 05:30 Labs: Laboratory Results - last 24 hr 07/28/19 07/28/19 07/28/19 05:30 11:10 19:00 WBC 6.8 RBC 3.52 L Hgb 7.2 L Hct 22.6 L MCV 64.2 L MCH 20.5 L MCHC 31.9 RDW 18.4 H Plt Count 218 Neut % (Auto) 61.9 Lymph % (Auto) 25.3 [place] % (Auto) 10.1 Eos % (Auto) 1.9 L Baso % (Auto) 0.8 Neut # (Auto) 4200 Lymph # (Auto) 1700 [place] # (Auto) 700 Eos # (Auto) 100 Baso # (Auto) 100 RBC Morphology See below Hypochromasia 1+ H Anisocytosis Microcytosis 2+ H Tear Drop Cells Sodium Potassium Chloride Carbon Dioxide BUN Creatinine Estimated GFR BUN/Creatinine Ratio Glucose Calcium Magnesium Iron 27 L TIBC 425 % Saturation 6 L Transferrin 350 Total Bilirubin Conjugated Bilirubin Unconjugated Bilirubin AST ALT Alkaline Phosphatase Total Protein Albumin Globulin Albumin/Globulin Ratio Blood Type O Positive Antibody Screen Negative Crossmatch See Detail 07/29/19 07/29/19 05:30 05:30 WBC 5.7 RBC 3.22 L Hgb 6.5 L* Hct 20.9 L* MCV 64.9 L MCH 20.3 L MCHC 31.3 RDW 18.2 H Plt Count 184 Neut % (Auto) 62.0 Lymph % (Auto) 24.8 L [place] % (Auto) 10.2 Eos % (Auto) 2.0 Baso % (Auto) 1.0 Neut # (Auto) 3500 Lymph # (Auto) 1400 [place] # (Auto) 600 Eos # (Auto) 100 Baso # (Auto) 100 RBC Morphology See below Hypochromasia 1+ H Anisocytosis 2+ H Microcytosis 1+ H Tear Drop Cells 1+ H Sodium 138 Potassium 3.8 Chloride 107 Carbon Dioxide 27 BUN 18 H Creatinine 0.80 Estimated GFR > 60.0 BUN/Creatinine Ratio 22.5 H Glucose 92 Calcium 8.5 Magnesium 2.0 Iron TIBC % Saturation Transferrin Total Bilirubin 0.4 Conjugated Bilirubin 0.0 Unconjugated Bilirubin 0.3 AST 17 ALT 11 Alkaline Phosphatase 65 Total Protein 5.6 L Albumin 3.2 L Globulin 2.4 Albumin/Globulin Ratio 1.3 Blood Type Antibody Screen Crossmatch Assessment & Plan Assessment & Plan narrative: Joann Garrison is a 78-year-old female with past medical history of peptic ulcer disease, esophageal strictures (followed at [facility]), hyperlipidemia, bipolar disorder who presented to the emergency room with coffee-ground emesis starting yesterday evening. She is admitted to Medicine for upper GI bleeding. 1. Upper GI bleed, present on admission -unclear acuity at this time. Patient has had multiple episodes of emesis recently which may be indicative of a possible upper GI bleed (likely PUD based on her history) initiating her symptoms. She could also have a Lauren-Dumont tear from her frequent emesis. This may have been going on for a couple of days given reports of dark stools recently. Her hemoglobin is lower than previous although her last value was a year ago, but she is slightly symptomatic with increased dyspnea on exertion and fatigue. Her Hg did drop to 6.5 overnight and she will be transfused 1 unit this morning. -appreciate general surgery consultation - continue to follow h/h - NPO/IVF for now, will rate results of endoscopy before advancing diet. - given 80 mg protonix in ED, continue 40 mg protonix IV BID 2. Acute blood loss anemia -secondary to likely above upper GI bleed. Her MCV is 64 indicating this may be more chronic in nature as previously her MCVs were in the 70s to 80s. She may have an underlying thallessemia as well given her MCV. -iron panel shows an iron deficiency anemia -management as noted above -discharge on oral iron therapy. 3. Hyperlipidemia, stable, chronic -continue home atorvastatin when able to take p.o. intake 4. Bipolar disorder, chronic stable -resume home Wellbutrin and sertraline when able to tolerate p.o. intake. Code: Patient states she is DNR DNI, surrogate decision maker is her daughter DVT: SCDs Dispo: Patient is admitted under inpatient status. Discharge pending endoscopy, however this is likely to be in the next 1-2 days given down trending hemoglobin. Quality VTE Deep Vein Thrombosis/Pulmonary Embolism Present on Admission: No
--- NOTE | 2019-07-29 11:42 | PC.NURSE ---
Addendum entered by Nel Elias R.N. 07/29/19 15:33: Spoke w/ Dr Isidro and let him know that patient already had her barium swallow study. Patient wanted to know if she can eat, received order to start a full liquid diet. Blood transfusion completed without s/sx adverse reaction. Patient resting in bed. Call light and belongings within reach, bed alarm on. Addendum entered by Nel Elias R.N. 07/29/19 13:45: Patient arrived back to floor from PACU at 1310. Vitals stable. Blood restarted (was stopped downstairs in order for them to give meds). Taken off floor at this time, via wheelchair, for barium swallow study. Blood left running. Addendum entered by Nel Elias R.N. 07/29/19 12:40: This technical document writer spoke w/ Dr John and let him know that patient C/O intermittent blurry vision. Dr John said that patient has been having vision issues off and on. No new orders, will continue to monitor when patient arrives back on the floor. Original Note: Shift summary: Off floor to EGD at this time. Blood infusing and sent with patient downstairs. 15 min vitals completed before she left the floor.
--- NOTE | 2019-07-29 12:02 | CM.DPC ---
Discharge Planning/Care Management DCP: assessment: Case received, EMR reviewed. Discussed in Team Rounds. Pt is a 78 year old female who admitted to care of hospitalist team yesterday. Dr. Isidro: consulting Payer: [employer]. Admission status: INPT: confirmed by UR VINAYAK Christianson. Went to room now to meet with pt. She has just been taken to OR for EGD under Dr. Isidro's recommendation. VINAYAK Neumann anticipated she would be there for the next 2-3 hours and that she was also receiving a blood transfusion today. Spoke with a group of family members/grandaughters, son in law and young grand-children who had just arrived. Introduced self and role. They confirmed that pt lives with her daughter Gina and all of us in [place]. P: likely home when pt is deemed stable for same and with outpt followup but is early...DCP team will be following prn. CM Discharge Assessment Start: 07/29/19 11:59 Freq: Status: Active Protocol: Document 07/29/19 12:00 ITV (Rec: 07/29/19 12:01 ITV [id number]) Discharge Planning Assessment Advance Directives? No Advance Directives on File No History Provided By Medical Record Has Patient been admitted in last 30 No days? Prior Living Arrangements House Household Members family Comment lives with daughter and multiple extended family including young great-grand children . Is patient alert and oriented? Yes Whiteboard Updated in Patient Room with Yes name and ext. # of [employer] Review Status In Process
[2019-07-29] MEDS: LIDOCAINE 4% SOLN 50 ML 20 ML TOP (12:26)
[2019-07-29] MEDS: MIDAZOLAM 5 MG/5 ML VIAL IV (12:33)
--- NOTE | 2019-07-29 12:41 | PM.OP.ENDO ---
Operative Date/Time/Diagnoses Date of procedure: 07/29/19 Time of procedure: 12:41 Pre-op diagnosis: Upper intestinal bleed Post-op diagnosis: same (Large hiatal hernia. No ulceration or cause of bleeding seen. There was no blood in her upper tract. Her GE junction is at 28 cm.) Procedure & Clinicians Study performed: EGD Same procedure as scheduled: Yes Indications: Coffee-ground emesis presumed upper GI bleed. Acute /possible chronic blood loss anemia Surgeon: Lamin Isidro Procedure Notes SCOAP/Timeout: Performed Procedure in detail: The patient had topical anesthetic applied to oropharynx. She was placed in left lateral decubitus position and underwent IV sedation directed by the surgeon consisting of fentanyl and Versed. A bite block was inserted and the scope was advanced through it into the esophagus. The esophagus was unremarkable. GE junction was noted at 28 cm from the incisors. The stomach insufflated but initially I could not identify the distal stomach. There was suddenly a release and the distal stomach was available for examination.. There were no lesions seen in the body, antrum or at the incisura. The pyloric channel was patent. The duodenum was unremarkable to the 4th part. The scope was brought back into the stomach and retroflexed. The proximal stomach was remarkable for most of it being in the chest. There is a large hiatal hernia but no ulcer within it.. The scope was straightened and brought out through the esophagus again. No lesions were seen. The scope was removed and the patient tolerated the procedure well. Scope withdrawal time: Not applicable Sedation minutes: 12 Findings: hiatal hernia (Large) and other findings (No obvious source of the upper GI bleed) Specimen(s): none sent Complications: none Post-procedure Plan for aftercare: Follow-up in office. Patient may need to be considered for a procedure to reduce her stomach from her chest Follow up: weeks (1-2) Disposition: PACU
[2019-07-29] MEDS: fentaNYL 250 MCG/5 ML INJ IV (12:45)
--- NOTE | 2019-07-29 13:20 | DI.RAD.S_ITS ---
PROCEDURE: FL BARIUM SWALLOW INDICATIONS: Assess anatomy. Assess motility of the esophagus COMPARISON: [facility], CT, CT ABDOMEN PELVIS W CON, 07/28/2019, 5:54. FINDINGS: There is abnormal esophageal peristalsis with multiple disorganized tertiary contractions. The proximal esophagus is mildly dilated. No elicited gastroesophageal reflux. There is short segment mild focal narrowing of the distal esophagus at the gastroesophageal junction, suspicious for stricture. There is a large paraesophageal hiatal hernia with intrathoracic stomach. No extrinsic mass effects, or subacute diverticula. Stomach appears irregular with thickened gastric folds. IMPRESSION: 1. Short segment narrowing in the distal esophagus near the entry subcutaneous junction suspicious for stricture. Upper endoscopy is suggested for further evaluation. 2. Esophageal dysmotility. 3. Irregular appearance of stomach with thickened gastric folds, suggesting gastritis. 4. Large paraesophageal hiatal hernia with intrathoracic stomach. Dictated by: Jake Hidalgo M.D. on 07/29/2019 at 16:38 Approved by: Jake Hidalgo M.D. on 07/29/2019 at 16:43
[2019-07-29 18:30] LABS: Add Manual Diff / Slide Review NO; Basophils Absolute Auto 100 /uL (0-100); Basophils Percent Auto 0.9 % (0-2); Eosinophils Absolute Auto 100 /uL (0-450); Eosinophils Percent Auto 1.5 % (2-4); Hematocrit 25.3 % (36-46); Hemoglobin 8.1 g/dL (12.0-16.0); Lymphocytes Absolute Auto 1200 /uL (1100-4500); Lymphocytes Percent Auto 18.8 % (25-40); Mean Corpuscular HGB Conc 32.2 % (30-36); Mean Corpuscular Hemoglobin 22.1 PG (26-34); Mean Corpuscular Volume 68.8 fL (80-100); Monocytes Absolute Auto 700 /uL (0-900); Monocytes Percent Auto 10.2 % (3-14); Neutrophils Absolute Auto 4400 /uL (1500-7000); Neutrophils Percent Auto 68.6 % (50-75); Platelet Count 190 X10^3/uL (150-400); Red Blood Cell Count 3.68 X10^6/uL (4.0-5.2); White Blood Cell Count 6.4 X10^3/uL (4.5-11.0)
[2019-07-29 19:08] LABS: Hypochromasia 1+; Microcytosis 2+
[2019-07-29] MEDS: ATORVASTATIN 20 MG TABLET 40 MG PO (21:50)
--- NOTE | 2019-07-29 23:45 | PC.NURSE ---
Evening note: Vahe had a good evening, asking what is the plan now, asking when the physician would round. I notified Dr John of patient's request to know the results of her earlier xray, but he did not go in room to talk to patient, and surgeon never rounded tonight. I read result of xray to patient and her daughter so they were aware of result. One unit of PRBC's transfused & complete at 1500, H&H post transfusion = 04/13. VS are stable tonight. RA oxygen high 90's. Intermittent coarse cough, I notified Mr Trevor LAW of patient request for lozenge, he gave order for tessalon pearls. She reports feeling very fatigued. Tolerating full liquid diet, denies abdomen pain or nausea. Getting up to BR approx every 2 hours, having black tarry stools. Gave self partial bath, refused shower tonight, saying i will wait for morning-I am so exhausted tonight. Words of comfort & encouragement offered. Fall precautions in place, pt calling nurse appropriately & cooperative with care.
[2019-07-30] MEDS: BENZONATATE 100 MG CAPSULE 200 MG PO (04:40)
[2019-07-30 05:58] VITALS: BP 124/62; PULSE 68; RESP 18; TEMP 36.4; O2SAT 96
[2019-07-30 06:02] LABS: Add Manual Diff / Slide Review NO; Basophils Absolute Auto 100 /uL (0-100); Basophils Percent Auto 0.9 % (0-2); Eosinophils Absolute Auto 100 /uL (0-450); Eosinophils Percent Auto 1.3 % (2-4); Hematocrit 26.3 % (36-46); Hemoglobin 8.4 g/dL (12.0-16.0); Lymphocytes Absolute Auto 1200 /uL (1100-4500); Lymphocytes Percent Auto 16.4 % (25-40); Mean Corpuscular HGB Conc 31.9 % (30-36); Mean Corpuscular Hemoglobin 22.1 PG (26-34); Mean Corpuscular Volume 69.2 fL (80-100); Monocytes Absolute Auto 700 /uL (0-900); Neutrophils Absolute Auto 5200 /uL (1500-7000); Neutrophils Percent Auto 71.4 % (50-75); Platelet Count 197 X10^3/uL (150-400); White Blood Cell Count 7.3 X10^3/uL (4.5-11.0)
[2019-07-30 06:03] LABS: Blood Urea Nitrogen 12 mg/dL (7-17); Calcium 8.7 mg/dL (8.4-10.2); Carbon Dioxide 26 mmol/L (22-32); Chloride 108 mmol/L (98-107); Estimated Glomerular Filt Rate > 60.0 mL/min (>60); Glucose 100 mg/dL (80-110); HEMOLYSIS < 15 (0-50); Potassium 3.9 mmol/L (3.4-5.1); Sodium 137 mmol/L (137-145)
[2019-07-30 06:49] LABS: Anisocytosis 2+
[2019-07-30 06:50] LABS: Hypochromasia 1+; Microcytosis 2+
[2019-07-30] MEDS: ONDANSETRON 4 MG/2 ML INJ IV (08:20)
[2019-07-30] MEDS: SERTRALINE 50 MG TABLET 150 MG PO (08:20)
[2019-07-30] MEDS: PANTOPRAZOLE 40 MG VIAL IV (08:20)
[2019-07-30 09:10] VITALS: BMI 24.0
--- NOTE | 2019-07-30 09:20 | DIET.PN ---
Dietary Progress Note Assessment: Ms. Garrison is 78y F presenting with significant hiatal hernia c coffee ground emesis which causes significant distress including early satiety, not eating to physiological fullness, SOB c ADLs, and frequent N/V. Pt was aware of the nutrition reccs presented by RD, does not consume caffeine, limits chocolate, avoids spicy foods, eats small, frequent meals. This RD reiterated moderate fat intake as fat is last to digest from stomach, elevating head of bed with wedge under mattress, sitting up in chair 1h post meal, waiting 3h post meal to lie down for sleep. Pt only able to tolerate 1/2c food at a time, even full liquids, before stops eating r/t fullness, N/V. HT: 165.1cm WT: 65.7kg UBW: 67kg BMI: 24.1 Labs:hgb 8.4 post transfusion as dropped to 6.5 Nutrition Diagnosis: Altered GI function r/t dx (hiatal hernia) aeb admitted for coffee ground emesis, frequent N/V, early satiety without being able to satisfy physiological fullness, SOB c ADLs, all despite following nutrition reccs for dx. Interventions: Reiterated Nutrition reccs, head of bed elevated c wedge under mattress, sitting in chair 1h post meal, not laying down for bed until 3h post meal. Pt would do well with surgical remediation of hernia as is not finding relief with nutrition management. Diet Order: full liquids EER: 1600kcal, 70g PRO (1.1g/kg elder), 2L fluids Monitoring/Evaluations: diet advancement, diet tolerance
[2019-07-30 10:00] VITALS: BP 127/50; PULSE 70; RESP 16; TEMP 36.6; O2SAT 97
--- NOTE | 2019-07-30 13:31 | PC.NURSE ---
Discharge: Pt feels ready to d/c home, pt did see RD prior to leaving. Discussed hiatal hernia diet w/her. Zofran given after bkft because she felt nausea then, it did keep her from vomiting and she is sent home w/rx. Seen by , dtr present at time of teaching. reviewed d/c packet, questions answered. Pt d/c home via auto w/dtr. Pt lives w/her dtr. Neither pt or dtr expressed any concerns.
--- NOTE | 2019-07-30 17:19 | PM.DS.1 ---
History of Present Illness History of Present Illness Date Patient Seen: 07/30/19 Time Patient Seen: 08:40 Chief complaint: throwing coffee grounds/blood clot Narrative: Joann Garrison is a 78-year-old female with past medical history of peptic ulcer disease, esophageal strictures (followed at [facility]), hyperlipidemia, bipolar disorder who presented to the emergency room with coffee-ground emesis starting yesterday evening. Patient states that she had a slight increase in her normal emesis pattern recently. She says that after some meals she usually vomits from her strictures, however starting yesterday she vomited about 12 times, and then the emesis became very dark with coffee-ground material. She tried taking Pepto-Bismol when she started vomiting but this did not help. With her emesis she developed moderate, sharp and burning, epigastric pain that radiated into her throat. This improved with medications given in the emergency room. There was no radiation to her back. For the past couple of days she has had worsening dyspnea on exertion, as well as generalized malaise. She states she thinks her stools may have been dark as well. She denies any recent fevers or chills, chest pain, shortness of breath at rest, changes in her usual cough, sputum production, changes in her usual headaches, vision changes, skin rash, or lower extremity swelling. In the emergency room, patient was mildly hypertensive, heart rate of 96 but afebrile and vitals were otherwise unremarkable. Her initial labs showed a hemoglobin of 7.9, down from 11 last year, unremarkable CMP. CT abdomen pelvis showed a large hiatal hernia, distended stomach, with mild inflammatory changes around the distal esophagus, and the read indicates that volvulus is a consideration. The emergency room contacted general surgery who did not believe her symptoms were consistent with a volvulus, however they did recommend observation, formal recommendations are pending. Patient was admitted to Medicine under observation status for a possible upper GI bleed. Discharge Providers Provider Date of admission: 07/29/19 11:13 Discharge Date: 07/30/19 Primary care physician: ANI An Consults: 07/30/19 08:13 Consult to Dietitian, Adult Routine Comment: Thanks Reason For Exam: Lg Hiatal hernia, nausea after eating, needs tips Discharge provider: Demetrius John, DO Summary Hospital Course Discharge Diagnosis: 1. Upper GI bleed, present on admission 2. Acute blood loss anemia 3. Hyperlipidemia, stable, chronic 4. Bipolar disorder, chronic stable 5. Hiatal hernia, chronic condition, present on admission Hospital Course: Joann Garrison is a 78-year-old female with past medical history of peptic ulcer disease, esophageal strictures (followed at [facility]), hyperlipidemia, bipolar disorder who presented to the emergency room with coffee-ground emesis. She was admitted to Medicine for upper GI bleeding. Her hemoglobin did drop to 6.5 the morning of endoscopy, and she was given 1 unit of packed red blood cells. Her endoscopy was unremarkable except for her large hiatal hernia and known strictures. Barium swallows done which showed esophageal dysmotility, strictures, all of which were known to the patient. 1. Upper GI bleed, present on admission -unclear acuity at this time. Patient has had multiple episodes of emesis recently which may be indicative of a possible upper GI bleed secondary to Lauren-Dumont tear which then resolved prior to her endoscopy. Her H&H stabilized after 1 unit of PRBC transfusion. Her discharge hemoglobin was in the 8. She was given a prescription for omeprazole 40 mg b.i.d., which she should take for 2 weeks and then continue her usual dosing of omeprazole daily given likely upper GI source with negative upper endoscopy. 2. Acute blood loss anemia -secondary to likely above upper GI bleed. Her MCV is 64 indicating this may be more chronic in nature as previously her MCVs were in the 70s to 80s. She may have an underlying thallessemia as well given her MCV. -iron panel shows an iron deficiency anemia -management as noted above -patient received a transfusion, defer to PCP re: continued Iron therapy after discharge. 3. Hyperlipidemia, stable, chronic -continue home atorvastatin 4. Bipolar disorder, chronic stable -resume home Wellbutrin and sertraline 5. Hiatal hernia, chronic condition, present on admission -patient will follow-up with Dr. Moreno in 1-2 weeks in his clinic to discuss possible surgical options for repair. Exam Vital Signs (past 8 hours): - 07/30/19 10:00 Temperature 98 F Pulse Rate 70 Respiratory Rate 16 Blood Pressure 127/50 L Pulse Oximetry 97 Oxygen Delivery Method Room Air Oxygen Flow Rate 0 Narrative Exam Narrative: GENERAL APPEARANCE: Well developed, well nourished, in no acute distress. Very slightly pale. SKIN: Inspection of the skin reveals no rashes, ulcerations or petechiae. Slight pallor HEENT: The sclerae were anicteric and conjunctivae were pink and moist. Extraocular movements were intact and pupils were equal, round with normal accommodation. External inspection of the ears and nose showed no scars, lesions, or masses. Lips, teeth, and gums showed normal mucosa. The oral mucosa, hard and soft palate, tongue and posterior pharynx were unremarkable. NECK: Supple and symmetric. There was no thyroid enlargement, and no tenderness, or masses were felt. CHEST: Normal AP diameter and normal contour without any kyphoscoliosis. LUNGS: Auscultation of the lungs revealed no wheezes, rhonchi, or rales. CARDIOVASCULAR: There was a regular rate and rhythm without any murmurs, gallops, rubs. Peripheral pulses were 2+ and symmetric. ABDOMEN: Soft, nontender. Normal bowel sounds. No ascites was noted. MUSCULOSKELETAL: There was no tenderness or effusions noted. Muscle strength and tone were normal. EXTREMITIES: No cyanosis, clubbing or edema. NEUROLOGIC: Alert and oriented x 3. Normal affect. Strength is +5/5 in the Upper Extremities and Lower Extremities Bilaterally. Sensation to touch was normal. Objective Labs Result Diagrams: 07/30/19 05:35 07/30/19 05:35 Labs: Laboratory Results - last 24 hr 07/29/19 07/30/19 07/30/19 18:15 05:35 05:35 WBC 6.4 7.3 RBC 3.68 L 3.80 L Hgb 8.1 L 8.4 L Hct 25.3 L 26.3 L MCV 68.8 L D 69.2 L MCH 22.1 L 22.1 L MCHC 32.2 31.9 RDW 23.0 H 22.0 H Plt Count 190 197 Neut % (Auto) 68.6 71.4 Lymph % (Auto) 18.8 L 16.4 L [place] % (Auto) 10.2 10.0 Eos % (Auto) 1.5 L 1.3 L Baso % (Auto) 0.9 0.9 Neut # (Auto) 4400 5200 Lymph # (Auto) 1200 1200 [place] # (Auto) 700 700 Eos # (Auto) 100 100 Baso # (Auto) 100 100 RBC Morphology See below See below Hypochromasia 1+ H 1+ H Anisocytosis 2+ H Microcytosis 2+ H 2+ H Sodium 137 Potassium 3.9 Chloride 108 H Carbon Dioxide 26 BUN 12 Creatinine 0.80 Estimated GFR > 60.0 BUN/Creatinine Ratio 15.0 Glucose 100 Calcium 8.7 Discharge Plan Discharge Plan Patient Disposition: Home Discharge comment: You were admitted to the hospital after an episode of coffee-ground emesis. Your blood level dropped low enough that you needed a transfusion. This stabilized upon discharge after 1 Unit of Blood. You were started on a proton pump inhibitor which helps to stop gastric bleeding. Your endoscopy did not show any evidence of bleed however your labs show that you may have a more chronic bleed. You should continue to take omeprazole twice daily for a couple of weeks. After this you should continue the medicine daily. You should follow-up with your primary care provider to see if this needs further evaluation. You also have a follow-up with the surgeon for your hiatal hernia. Discharge orders & Medications Prescriptions: New ondansetron 4 mg tablet,disintegrating 4 mg PO Q8H PRN (Reason: nausea and vomiting) Qty: 14 RF: 0 omeprazole 40 mg capsule,delayed release(DR/EC) 40 mg PO BID 14 Days Qty: 28 RF: 0 benzonatate 100 mg Capsule 200 mg PO TID PRN (Reason: Cough) 7 Days Qty: 42 RF: 0 Continued sertraline [Zoloft] 100 mg tablet 150 mg PO QDAY Qty: 135 RF: 3 atorvastatin 40 mg tablet 40 mg PO BEDTIME Qty: 30 RF: 5 bupropion HCl [Wellbutrin XL] 150 mg Tablet Extended Release 24 Hr 150 mg PO QAM RF: 0 Follow up/Referrals: Freida Phillips ARNP [Primary Care Provider] - Lamin Moreno MD [Physician] - (PLEASE CALL TO SCHEDULE APPOINTMENT WITH DR. MORENO TO DISCUSS REDUCTION OF HERNIA.) Diet/Activity/Treatments Diet: Diet as Tolerated Diet comment: Chew food, small meals, hiatal hernia diet Activity: As tolerated Visit Report/Discharge Packet Instructions: Hiatal Hernia, Blood Transfusion, DI for Blood Transfusion, DI for Gastroesophageal Reflux Disease (GERD), Gastrointestinal Bleeding, EGD Discharge Instructions Stand Alone Forms: EGD Result: [facility] Surg Discharge Data Primary Care Provider: Freida Phillips Discharges patient from system. Discharge Date/Time: 07/30/19 12:15 Quality VTE Deep Vein Thrombosis/Pulmonary Embolism Present on Admission: No
== END 2019-07-30 12:15 | disposition home or self-care (01) | DRG 378 ==
LOC: ED 07:42 → AC 07:44
PROVIDERS: Nurse Practitioner Family; Specialist; Admitting Provider Internal Medicine; Emergency Provider Emergency Medicine; PCP Nurse Practitioner Family; Visit Provider Internal Medicine
PROC: 0DJ08ZZ Inspection of Upper Intestinal Tract, Via Natural or Artificial Opening Endoscopic (ICD-10-PCS; CPT 43235; principal; 2019-07-29 16:00)
DX: K92.0 Hematemesis (principal); D62 Acute posthemorrhagic anemia; K44.9 Diaphragmatic hernia without obstruction or gangrene; K22.2 Esophageal obstruction; F31.9 Bipolar disorder, unspecified; E78.5 Hyperlipidemia, unspecified
CPT/HCPCS: 36415; 36430; 43235; 74177; 74220; 80048; 80053; 80076; 83540; 83550; 83690; 83735; 85025; 85610; 85730; 86850; 86900; 86901; 90471; 90662; 99152; 99232; 99283; G0378; P9016; C9113; J2250; J2405; J3010; Q9967